=== PATIENT | male | born 1980 | race Caucasian/White ===

== ENCOUNTER → 2016-08-10 | Outpatient (CLI) | payer OTHER ==
[2016-08-10 12:07] LABS: LUTEINIZING HORMONE 5.6 mIU/mL (1.5-9.3)
[2016-08-10 12:08] LABS: ESTRADIOL 32.3 PG/ML (<39.8)
== END ==
LOC: M LAB 10:14
PROVIDERS: ATTEND Nurse Practitioner Women's Health
DX: N46.9 Male infertility, unspecified (principal)

== ENCOUNTER → 2016-08-10 | Outpatient (REF) | payer OTHER ==
[2016-08-10 10:30] LABS: #IMMOTILE SPERM COUNTED 3.5; #MOTILE SPERM COUNTED 3; % MOTILITY 46 (> 25%); TOTAL # SPERM COUNTED 6.5 M/ml
== END ==
LOC: M SMT 09:53
PROVIDERS: ATTEND Nurse Practitioner Women's Health
DX: N46.9 Male infertility, unspecified (principal)

== ENCOUNTER → 2016-12-10 | Outpatient (CLI) | payer OTHER ==
[2016-12-10 09:49] LABS: #IMMOTILE SPERM COUNTED 2; #MOTILE SPERM COUNTED 2.5; % MOTILITY 55 (> 25%); TOTAL # SPERM COUNTED 4.5 M/ml
[2016-12-10 10:18] LABS: LUTEINIZING HORMONE 15.4 mIU/mL (1.5-9.3)
[2016-12-10 10:19] LABS: ESTRADIOL 67.3 PG/ML (<39.8)
== END ==
LOC: M LAB 08:39
PROVIDERS: ATTEND Urology
DX: N46.9 Male infertility, unspecified (principal)

== ENCOUNTER → 2017-03-28 | Outpatient (CLI) | payer OTHER ==
[2017-03-28 08:52] LABS: #MOTILE SPERM COUNTED 1; SPERM ABNORMAL FORMS WBC'S NOTED
[2017-03-28 08:53] LABS: #IMMOTILE SPERM COUNTED 3; % MOTILITY 25 (> 40%); TOTAL # SPERM COUNTED 4 M/ml
[2017-03-28 09:38] LABS: ESTRADIOL 50.9 PG/ML (<39.8); LUTEINIZING HORMONE 11.9 mIU/mL (1.5-9.3); PROLACTIN 8.9 NG/ML (2.1-17.7)
[2017-03-28 09:39] LABS: FOLLICLE STIMULATING HORMONE 22.5 mIU/mL (1.4-18.1)
== END ==
LOC: M LAB 08:27
PROVIDERS: ATTEND Urology
DX: N46.9 Male infertility, unspecified (principal)

== ENCOUNTER → 2017-07-05 | Outpatient (REF) | payer OTHER ==
[2017-07-05 09:55] LABS: #IMMOTILE SPERM COUNTED 2.5; #MOTILE SPERM COUNTED 1.5; % MOTILITY 37 (> 40%)
== END ==
LOC: M SMT 09:12
PROVIDERS: ATTEND Urology
DX: N46.9 Male infertility, unspecified (principal)

== ENCOUNTER → 2017-07-05 | Outpatient (CLI) | payer OTHER ==
[2017-07-05 11:27] LABS: LUTEINIZING HORMONE 6.2 mIU/mL (1.5-9.3)
[2017-07-05 11:28] LABS: ESTRADIOL 34.2 PG/ML (<39.8)
== END ==
LOC: M LAB 09:13
PROVIDERS: ATTEND Urology
DX: N46.9 Male infertility, unspecified (principal)

== ENCOUNTER → 2018-07-14 | Outpatient (CLI) | payer OTHER ==
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
== END ==
LOC: M RAD 06:39
PROVIDERS: ATTEND Urology
DX: N50.89 Other specified disorders of the male genital organs (principal); N50.3 Cyst of epididymis

== ENCOUNTER → 2018-07-23 | Outpatient (CLI) | payer OTHER ==
[2018-07-23 17:29] LABS: BLOOD UREA NITROGEN 16 MG/DL (7-18); CALCIUM LEVEL 9.1 MG/DL (8.5-10.1); CARBON DIOXIDE LEVEL 31 MEQ/L (21-32); CHLORIDE LEVEL 104 MEQ/L (98-107); GLOMERULAR FILTRATION RATE > 60.0 (>60); GLUCOSE, FASTING 76 MG/DL (70-100); POTASSIUM SERUM 4.7 MEQ/L (3.5-5.1); SODIUM LEVEL 141 MEQ/L (136-145)
[2018-07-23 17:31] LABS: HEMATOCRIT 48.4 % (42.0-52.0); HEMOGLOBIN 16.6 g/dl (13.5-17.5); MEAN CORPUSCULAR HEMOGLOBIN 28.8 pg (27.0-33.0); MEAN CORPUSCULAR HGB CONC 34.3 g/dl (32.0-36.5); MEAN CORPUSCULAR VOLUME 83.9 fl (80.0-96.0); PLATELET COUNT, AUTOMATED 257 10^3/uL (150-450); RED BLOOD COUNT 5.77 10^6/uL (4.30-6.10); WHITE BLOOD COUNT 9.4 10^3/uL (4.0-10.0)
[2018-07-23 17:42] LABS: INR 1.06; PROTHROMBIN TIME 13.9 SECONDS (12.1-14.4)
[2018-07-23 17:43] LABS: PARTIAL THROMBOPLASTIN TIME 31.8 SECONDS (25.4-37.6)
== END ==
LOC: M SMT 14:33
PROVIDERS: ATTEND Urology
DX: N50.3 Cyst of epididymis (principal)

== ENCOUNTER 2018-07-25 11:36 | Day surgery (SDC) | payer OTHER ==
[~2018-07-25] VITALS: Ht 177.8 cm; Wt 100.2 kg
[2018-07-25] MEDS ORDERED: LR 1,000 ML IV SCH ×2 (12:00→16:45)
[2018-07-25] MEDS ORDERED: LIDOCAINE 1% SDV INJ 30 ML VIAL As Ordered ONE (14:35)
[2018-07-25] MEDS ORDERED: BACITRACIN OINT 30GM As Ordered ONE (14:35)
[2018-07-25] MEDS ORDERED: BUPIVACAINE HCL 0.25% 30 ML VIAL As Ordered ONE (14:35)
[2018-07-25] MEDS ORDERED: LIDOCAINE 2% INJ 100 MG/5 ML SDV (FOR ANES.) As Ordered ONE (14:44)
[2018-07-25] MEDS ORDERED: PROPOFOL 200 MG/20 ML VIAL As Ordered ONE ×2 (14:44→15:48)
[2018-07-25] MEDS ORDERED: fentaNYL 100 MCG/2 ML INJECTION (J3010) As Ordered ONE (14:44)
[2018-07-25] MEDS ORDERED: MIDAZOLAM INJ 2 MG/2 ML VIAL (J2250) As Ordered ONE (14:44)
[2018-07-25] MEDS ORDERED: dexameTHASONE 4 MG/ML 1ML VIAL (J1100) As Ordered ONE (15:31)
[2018-07-25] MEDS ORDERED: KETOROLAC 60 MG/2 ML VIAL (J1885) As Ordered ONE (15:31)
[2018-07-25] MEDS ORDERED: ONDANSETRON 4MG/2ML VIAL (J2405) As Ordered ONE (15:31)
[2018-07-25] MEDS ORDERED: HYDROmorphone HCL 2 MG/ML 1ML VIAL (J1170) As Ordered ONE (16:01)
[2018-07-25] MEDS ORDERED: ONDANSETRON 4MG/2ML VIAL (J2405) IV PRN (16:45)
[2018-07-25] MEDS ORDERED: fentaNYL 100 MCG/2 ML INJECTION (J3010) IV PRN (16:45)
[2018-07-25] MEDS ORDERED: PERCOCET 5MG/325MG TAB PO PRN ×3 (16:45→17:00)
[2018-07-25] MEDS ORDERED: MORPHINE 10 MG/ML 1ML VIAL (J2270) IV PRN (16:45)
--- NOTE | 2018-07-25 16:46 | ROOPDOC ---
[facility] Report Of Operation Report of Operation DATE OF PROCEDURE: 07/25/18 PREPROCEDURE DIAGNOSIS: Left epididymal cyst. POSTPROCEDURE DIAGNOSIS: Left epididymal cyst. PROCEDURE: Removal of left epididymal cyst. SURGEON: Dr. Shadi Lou. LUMBER PRESS OPERATOR: None. ANESTHESIA: General. OPERATIVE INDICATIONS: This is a 38-year-old male with a large symptomatic left epididymal cyst. He was brought to the operating room today for the above listed procedure. DESCRIPTION OF PROCEDURE: The patient was brought to the operating room and general anesthesia was induced. Prophylactic antibiotics were infused. He was the placed in the supine position, prepped and draped in the usual sterile fashion. At this point, an approximately 4 cm transverse incision was made over the left hemiscrotum. I then dissected down through the scrotal wall layers. The testicle was then delivered out of the scrotum. The tunica vaginalis was then opened. Once the tunica vaginalis was opened, it was noted that the testicle appeared normal. There was a 3.5cm cyst on the head of the epididymis. At this point, I carefully dissected the epididymal cyst away from the epididymis. Once the cyst was completely removed, it was handed off the table to be sent for pathologic analysis. At this point, hemostasis was then obtained using the coagulation current. Once satisfied hemostasis, the scrotum is thoroughly irrigated. Once the scrotum was thoroughly irrigated, the testicle was delivered back within the left hemiscrotum in the normal anatomic position. Once that was done, we then closed. The dartos was then closed with a running #3-0 chromic suture. The skin was then closed with interrupted #2-0 chromic sutures. Once that was done and dressings were applied, this marked the conclusion of the procedure. The patient was then awakened from anesthesia and transported to the recovery room in stable condition. ESTIMATED BLOOD LOSS: 10 mL. COMPLICATIONS: None. SPECIMENS: Left epididymal cyst. PLAN: The patient will followup in the clinic for postoperative visit in a few weeks. SHADI OLU MD Jul 25, 2018 16:46
[2018-07-25 19:00] VITALS: BP 130/87
== END 2018-07-25 19:00 | disposition home or self-care (01) ==
LOC: M SDC 11:36
PROVIDERS: ATTEND Urology
DX: N50.3 Cyst of epididymis (principal); R06.83 Snoring; G47.9 Sleep disorder, unspecified; Z86.73 Personal history of transient ischemic attack (TIA), and cerebral infarction without residual deficits
CPT/HCPCS: 54830; 88305; J0690; J1100; J1170; J1885; J2250; J2405; J3010